=== PATIENT | female | born 1970 | race Caucasian/White ===

== ENCOUNTER 2018-04-20 08:28 | Emergency (ER) | payer SELFPAY ==
[~2018-04-20] VITALS: Ht 157.5 cm; Wt 100.0 kg
[~2018-04-20 08:28] MED LIST: BENTYL20 MG OR; EFFEXOR75 MG PO; HYDROXYCHLOR200 MG PO; METFORMIN500 MG PO; NAPROSYN500 MG OR; NAPROSYN500 MG PO; ONDANSETRON4 MG PO; PHENTERMINE30 MG OR; PREVACID30 M2 PO; RHEUMATREX2.5 M1 PO; ULTRAM50 M1 PO; VIVELLE0.05 MG TD
[2018-04-20 09:31] LABS: HEMATOCRIT 45.3 % (37.0-47.0); HEMOGLOBIN 15.4 g/dl (12.0-16.0); IMMATURE GRANULOCYTES 0.4 % (0.0-5.0); MEAN CELL VOLUME 89.9 fL CALC (80.0-100.0); MEAN CORPUSCULAR HGB 30.6 pG CALC (26.0-32.0); NEUT# 11.28 thou/uL (2.00-7.15); RED BLOOD COUNT 5.04 mill/uL (4.20-5.60); RED CELL DISTRI WIDTH 12.7 % (11.5-15.5)
[2018-04-20 09:31] LABS: URINE BILIRUBIN - DIPSTICK NEGATIVE (NEGATIVE); URINE BLOOD DIPSTICK TRACE-LYSED (NEGATIVE); URINE COLOR YELLOW; URINE GLUCOSE - DIPSTICK NEGATIVE (NEGATIVE); URINE KETONE >=80 mg/dL (NEGATIVE); URINE LEUK ESTERASE NEGATIVE (NEGATIVE); URINE NITRITE - DIPSTICK NEGATIVE (Negative); URINE PH 8.5 (4.5-8.0); URINE PROTEIN - DIPSTICK 100 mg/dL (NEG-TRACE); URINE SPECIFIC GRAVITY 1.015; URINE UROBILINOGEN - DIPSTICK 0.2 E.U./dL (0.2)
[2018-04-20 09:32] LABS: URINE CLARITY SL CLOUDY
[2018-04-20 09:33] LABS: URINE EPITHELIAL CELLS MODERATE EPI/hpf (0-FEW); URINE RBC 0-2 RBC/hpf (0-5)
[2018-04-20 09:35] LABS: ALBUMIN 4.5 g/dL (3.2-5.0); ALKALINE PHOSPHATASE 107 u/l (38-126); ANION GAP 21 (6-22 (CALC)); BILIRUBIN, TOTAL 0.8 mg/dL (0.0-1.4); BUN 11 mg/dL (7-17); BUN/CREATININE RATIO 18 (12-20 (CALC)); CARBON DIOXIDE 22 mmol/l (22-30); CHLORIDE 103 mmol/l (95-108); CREATININE 0.6 mg/dL (0.5-1.0); GFR > 60 ML/MIN (>=60 (CALC)); GFR FOR AFR.AMER. > 60 ML/MIN (>=60 (CALC)); LIPASE 88 u/l (23-300); POTASSIUM 3.7 mmol/l (3.5-5.1); SGOT/AST 24 u/l (14-36); SGPT/ALT 25 u/l (9-52); SODIUM 142 mmol/l (137-146); TOTAL PROTEIN 8.3 g/dL (6.3-8.2)
[2018-04-20] MEDS ORDERED: BENTYL10 MG PO (11:51)
[2018-04-20] MEDS ORDERED: CIPROFLOXACN500 MG PO (11:51)
[2018-04-20 12:20] VITALS: BP 146/67
== END 2018-04-20 12:20 | disposition home or self-care (01) | DRG 392 ==
LOC: ED 08:28
PROVIDERS: Emergency Medicine
DX: K52.9 Noninfective gastroenteritis and colitis, unspecified (principal); M19.90 Unspecified osteoarthritis, unspecified site

== ENCOUNTER 2018-11-25 13:37 | Emergency (ER) | payer SELFPAY ==
[~2018-11-25] VITALS: Ht 154.9 cm; Wt 97.7 kg
[~2018-11-25 13:37] MED LIST changes: +BENTYL10 MG PO; +CIPROFLOXACN500 MG PO
[2018-11-25 14:19] LABS: URINE BILIRUBIN - DIPSTICK NEGATIVE (NEGATIVE); URINE BLOOD DIPSTICK NEGATIVE (NEGATIVE); URINE COLOR YELLOW; URINE GLUCOSE - DIPSTICK NEGATIVE (NEGATIVE); URINE KETONE >=80 mg/dL (NEGATIVE); URINE LEUK ESTERASE NEGATIVE (NEGATIVE); URINE NITRITE - DIPSTICK NEGATIVE (Negative); URINE PH 8.5 (4.5-8.0); URINE PROTEIN - DIPSTICK 30 mg/dL (NEG-TRACE); URINE UROBILINOGEN - DIPSTICK 0.2 E.U./dL (0.2)
[2018-11-25 14:29] LABS: URINE RBC 0-2 RBC/hpf (0-5); URINE SQUAMOUS EPITHELIAL CELL FEW EPI/hpf (0-FEW); URINE WBC 0-2 WBC/hpf (0-5)
[2018-11-25 14:40] LABS: HEMATOCRIT 45.2 % (37.0-47.0); HEMOGLOBIN 14.7 g/dl (12.0-16.0); IMMATURE GRANULOCYTES 0.5 % (0.0-5.0); MEAN CELL VOLUME 92.4 fL CALC (80.0-100.0); MEAN CORPUSCULAR HGB 30.1 pG CALC (26.0-32.0); MEAN CORPUSCULAR HGB CONC 32.5 g/L CALC (32.0-36.0); NEUT# 10.26 thou/uL (2.00-7.15); RED BLOOD COUNT 4.89 mill/uL (4.20-5.60); RED CELL DISTRI WIDTH 13.5 % (11.5-15.5)
[2018-11-25 15:01] LABS: ALBUMIN 4.4 g/dL (3.2-5.0); ALKALINE PHOSPHATASE 106 u/l (38-126); ANION GAP 18 (6-22 (CALC)); BILIRUBIN, TOTAL 0.6 mg/dL (0.0-1.4); BUN 11 mg/dL (7-17); BUN/CREATININE RATIO 18 (12-20 (CALC)); CARBON DIOXIDE 23 mmol/l (22-30); CHLORIDE 103 mmol/l (95-108); CREATININE 0.6 mg/dL (0.5-1.0); GFR > 60 ML/MIN (>=60 (CALC)); GFR FOR AFR.AMER. > 60 ML/MIN (>=60 (CALC)); POTASSIUM 3.9 mmol/l (3.5-5.1); SGOT/AST 22 u/l (14-36); SODIUM 140 mmol/l (137-146); TOTAL PROTEIN 7.9 g/dL (6.3-8.2)
[2018-11-25] MEDS ORDERED: ONDANSETRON4 MG PO (16:02)
[2018-11-25 16:13] VITALS: BP 153/72
== END 2018-11-25 16:20 | disposition home or self-care (01) | DRG 392 ==
LOC: ED 13:37
PROVIDERS: Family Medicine
DX: R10.11 Right upper quadrant pain (principal); K80.20 Calculus of gallbladder without cholecystitis without obstruction
CPT/HCPCS: Q9967

== ENCOUNTER 2019-01-12 14:40 | Emergency (ER) | payer SELFPAY ==
[~2019-01-12] VITALS: Ht 152.4 cm; Wt 96.8 kg
[~2019-01-12 14:40] MED LIST changes: +CELEBREX100 M1 PO
[2019-01-12] MEDS ORDERED: EFFEXOR XR75 MG PO (15:23)
[2019-01-12 15:29] LABS: HEMATOCRIT 47.1 % (37.0-47.0); HEMOGLOBIN 15.7 g/dl (12.0-16.0); IMMATURE GRANULOCYTES 0.6 % (0.0-5.0); MEAN CELL VOLUME 90.9 fL CALC (80.0-100.0); MEAN CORPUSCULAR HGB 30.3 pG CALC (26.0-32.0); MEAN CORPUSCULAR HGB CONC 33.3 g/L CALC (32.0-36.0); NEUT# 12.46 thou/uL (2.00-7.15); RED BLOOD COUNT 5.18 mill/uL (4.20-5.60)
[2019-01-12 15:34] LABS: ALBUMIN 4.9 g/dL (3.2-5.0); ALKALINE PHOSPHATASE 102 u/l (38-126); AMYLASE 87 u/l (30-110); ANION GAP 17 (6-22 (CALC)); BILIRUBIN, TOTAL 0.7 mg/dL (0.0-1.4); BUN 14 mg/dL (7-17); BUN/CREATININE RATIO 20 (12-20 (CALC)); CARBON DIOXIDE 25 mmol/l (22-30); CHLORIDE 101 mmol/l (95-108); CREATININE 0.7 mg/dL (0.5-1.0); GFR > 60 ML/MIN (>=60 (CALC)); GFR FOR AFR.AMER. > 60 ML/MIN (>=60 (CALC)); LIPASE 120 u/l (23-300); POTASSIUM 4.1 mmol/l (3.5-5.1); SGOT/AST 20 u/l (14-36); SODIUM 138 mmol/l (137-146); TOTAL PROTEIN 8.3 g/dL (6.3-8.2)
[2019-01-12 16:59] LABS: URINE BLOOD DIPSTICK SMALL (NEGATIVE); URINE COLOR YELLOW; URINE GLUCOSE - DIPSTICK NEGATIVE (NEGATIVE); URINE KETONE 40 mg/dL (NEGATIVE); URINE LEUK ESTERASE NEGATIVE (NEGATIVE); URINE NITRITE - DIPSTICK NEGATIVE (Negative); URINE PH 7.5 (4.5-8.0); URINE PROTEIN - DIPSTICK 100 mg/dL (NEG-TRACE); URINE SPECIFIC GRAVITY 1.025; URINE UROBILINOGEN - DIPSTICK 0.2 E.U./dL (0.2)
[2019-01-12 17:01] LABS: URINE BILIRUBIN - DIPSTICK NEGATIVE (NEGATIVE)
[2019-01-12 17:03] LABS: BARBITURATES NEGATIVE (NEGATIVE); COCAINE NEGATIVE (NEGATIVE); METHADONE NEGATIVE (NEGATIVE); OXCYCODONE NEGATIVE (NEGATIVE); TETRAHYDROCANNABIONOL POSITIVE (NEGATIVE); TRICYLIC ANTIDEPRESSANTS NEGATIVE (NEGATIVE)
[2019-01-12 17:08] LABS: URINE SQUAMOUS EPITHELIAL CELL FEW EPI/hpf (0-FEW); URINE WBC 0-2 WBC/hpf (0-5)
[2019-01-12] MEDS ORDERED: PROTONIX40 M2 PO (17:14)
[2019-01-12] MEDS ORDERED: ZOFRAN4 M1 PO (17:14)
[2019-01-12 17:45] VITALS: BP 186/79
== END 2019-01-12 17:45 | disposition home or self-care (01) | DRG 392 ==
LOC: ED 14:40
PROVIDERS: Emergency Medicine
DX: R10.10 Upper abdominal pain, unspecified (principal); R11.10 Vomiting, unspecified

== ENCOUNTER 2023-04-29 11:11 | Emergency (ER) | payer OTHER ==
[~2023-04-29] VITALS: Ht 152.4 cm; Wt 90.0 kg
[2023-04-29] VITALS (15 sets, daily range): BP systolic 105–142; BP diastolic 60–107
[~2023-04-29 11:11] MED LIST changes: +EFFEXOR XR75 MG PO; +PROTONIX40 M2 PO; +ZOFRAN4 M1 PO
[2023-04-29 11:58] LABS: BASO% 0.4 % (0-3); EOS% 1.1 % (0-8); IMMATURE GRANULOCYTES 0.2 % (0.0-5.0); LYMPH% 32.9 % (15-41); MEAN CELL VOLUME 94.4 fL CALC (80.0-100.0); MEAN CORPUSCULAR HGB 29.9 pG CALC (26.0-32.0); MEAN CORPUSCULAR HGB CONC 31.6 g/dL CAL (32.0-36.0); MONO% 7.3 % (2-13); NEUT# 4.72 thou/uL (2.00-7.15); NEUT% 58.1 % (42-76); RED BLOOD COUNT 4.32 mill/uL (4.20-5.60); RED CELL DISTRI WIDTH 13.6 % (11.5-15.5)
[2023-04-29 12:03] LABS: HEMATOCRIT 40.8 % (37.0-47.0); HEMOGLOBIN 12.9 g/dl (12.0-16.0)
[2023-04-29 12:10] LABS: ALBUMIN 3.6 g/dL (3.2-5.0); ALKALINE PHOSPHATASE 84 u/l (38-126); ANION GAP 11 (6-22 (CALC)); BUN 7 mg/dL (7-17); BUN/CREATININE RATIO 9 (12-20 (CALC)); CARBON DIOXIDE 28 mmol/l (22-30); CHLORIDE 103 mmol/l (95-108); CREATININE 0.8 mg/dL (0.5-1.0); GFR FOR AFR.AMER. > 60 ML/MIN (>=60 (CALC)); GFR OTHER RACES > 60 ML/MIN (>=60 (CALC)); POTASSIUM 4.1 mmol/l (3.5-5.1); SGOT/AST 31 u/l (14-36); SODIUM 138 mmol/l (137-146); TOTAL PROTEIN 7.3 g/dL (6.3-8.2)
[2023-04-29 12:36] LABS: BILIRUBIN, TOTAL 0.3 mg/dL (0.02-1.3)
[2023-04-29] MEDS ORDERED: EPIPEN 2-P0.3 MG/0.3 IM (14:04)
[2023-04-29] MEDS ORDERED: ZYRTEC10 M5 PO (14:04)
[2023-04-29] MEDS ORDERED: PREDNISONE50 MG PO (14:04)
== END 2023-04-29 14:20 | disposition home or self-care (01) | DRG 916 ==
LOC: ED 11:11
PROVIDERS: Family Medicine
DX: T78.40XA Allergy, unspecified, initial encounter (principal); M06.9 Rheumatoid arthritis, unspecified; M79.7 Fibromyalgia; F17.200 Nicotine dependence, unspecified, uncomplicated; X58.XXXA Exposure to other specified factors, initial encounter; R93.2 Abnormal findings on diagnostic imaging of liver and biliary tract; R10.10 Upper abdominal pain, unspecified
CPT/HCPCS: Q9967